=== PATIENT | male | born 1960 | race African-American/Black ===

== ENCOUNTER 2019-04-28 13:50 | Inpatient (IN) | payer MEDICAID ==
[~2019-04-28] VITALS: Ht 177.8 cm; Wt 78.9 kg
[2019-04-28] MEDS ORDERED: ACETAMINOPHEN 325MG TABLET PO STA (14:31)
[2019-04-28] MEDS ORDERED: SODIUM CHLORIDE 0.9% 1000ML BAG (SEPSIS BOLUS) IV ONE (14:45)
[2019-04-28] MEDS ORDERED: PIPERACILLIN/TAZ 3.375G PREMIX 50 ML IV ONE (14:45)
[2019-04-28 15:00] LABS: HEMATOCRIT. 41.4 % (42.0-52.0); MEAN CORPUSCULAR HEMOGLOBIN 28.2 pg (28.0-32.0); MEAN CORPUSCULAR VOLUME 83.6 fL (80.0-94.0); MEAN PLATELET VOLUME 7.9 fl (7.4-10.4); PLATELET 207 x1000/uL (130-400); RED BLOOD CELL COUNT 4.96 mill/uL (4.7-6.1)
[2019-04-28 15:05] LABS: PROTHROMBIN TIME 10.5 sec (9.6-11.0)
[2019-04-28 15:06] LABS: CHLORIDE 101 mEq/L (98-107)
[2019-04-28 15:10] LABS: ETHANOL BLOOD < 10 mg/dL
[2019-04-28 15:28] LABS: CLARITY URINE CLEAR (CLEAR); COLOR URINE DARK YELLOW (YELLOW); KETONES URINE NEGATIVE (NEGATIVE); LEUKOCYTE ESTERASE URINE 1+ (NEGATIVE); NITRITE URINE POSITIVE (NEGATIVE); OCCULT BLOOD URINE NEGATIVE (NEGATIVE); PROTEIN URINE 1+ (NEGATIVE); SPECIFIC GRAVITY URINE 1.027 (1.005-1.030)
[2019-04-28] MEDS ORDERED: VANCOMYCIN 1 G PREMIX 200 ML IV SCH (15:30)
[2019-04-28 15:39] LABS: PLATELET ESTIMATE NORMAL
[2019-04-28] MEDS ORDERED: AZITHROMYCIN 500 MG TABLET PO ONE (16:45)
[2019-04-28] MEDS ORDERED: DOCUSATE SODIUM 100MG CAPSULE PO PRN (21:15)
[2019-04-28] MEDS ORDERED: CLONIDINE 0.1MG TABLET PO PRN (21:15)
[2019-04-28] MEDS ORDERED: ONDANSETRON HCL 4MG/2ML INJ IV PRN (21:15)
[2019-04-28] MEDS ORDERED: MAGNESIUM/ALUMINUM HYDROXIDE/SIMETHICONE 30ML UDC PO PRN (21:15)
[2019-04-28] MEDS ORDERED: LEVOFLOXACIN 500MG PREMIX 100 ML IV SCH (21:15)
[2019-04-28] MEDS ORDERED: ACETAMINOPHEN 325MG TABLET PO PRN (21:15)
[2019-04-28 21:30] VITALS: BP_SYST 103; BP_DIAS 60; BP_DIAS 62
[2019-04-28] MEDS: HYDROCODONE/ACETAMINOPHEN 5/325MG TABLET PO PRN (21:52)
[2019-04-29] MEDS: LEVOFLOXACIN 500MG PREMIX 100 ML IV SCH ×2 (00:01→23:14)
[2019-04-29] MEDS: HYDROCODONE/ACETAMINOPHEN 5/325MG TABLET PO PRN ×2 (01:51→14:17)
[2019-04-29 03:20] VITALS: BP_SYST 109; BP_SYST 114; BP_DIAS 65; BP_DIAS 71
[2019-04-29 06:30] LABS: HEMATOCRIT. 38.5 % (42.0-52.0); MEAN CORPUSCULAR HEMOGLOBIN 27.9 pg (28.0-32.0); MEAN CORPUSCULAR VOLUME 82.8 fL (80.0-94.0); MEAN PLATELET VOLUME 8.2 fl (7.4-10.4); PLATELET 195 x1000/uL (130-400); RED BLOOD CELL COUNT 4.65 mill/uL (4.7-6.1)
[2019-04-29 06:44] LABS: CHLORIDE 106 mEq/L (98-107)
[2019-04-29 08:00] VITALS: BP 135/79
[2019-04-29 12:00] VITALS: BP 116/80
[2019-04-29 14:31] LABS: PLATELET ESTIMATE NORMAL
[2019-04-29 14:47] LABS: *COCAINE SCREEN URINE PRESUMTIVE POSITIVE (NEGATIVE)
[2019-04-29 14:48] LABS: *AMPHETAMINES SCREEN URINE PRESUMTIVE POSITIVE (NEGATIVE); *BARBITURATES SCREEN URINE NEGATIVE (NEGATIVE); *BENZODIAZEPINES SCREEN URINE NEGATIVE (NEGATIVE); CANNABINOID URINE SCREEN NEGATIVE (NEGATIVE); METHADONE URINE SCREEN NEGATIVE (NEGATIVE); OPIATES URINE SCREEN PRESUMTIVE POSITIVE (NEGATIVE); PHENCYCLIDINE URINE SCREEN NEGATIVE (NEGATIVE)
[2019-04-29 16:00] VITALS: BP 104/53
[2019-04-29 20:00] VITALS: BP 108/60
[2019-04-30] VITALS: BP 112/68
[2019-04-30 04:00] VITALS: BP 110/65
[2019-04-30 08:00] VITALS: BP 112/74
[2019-04-30] MEDS: HYDROCODONE/ACETAMINOPHEN 5/325MG TABLET PO PRN (08:50)
[2019-04-30 14:45] VITALS: BP 103/70
[2019-04-30 16:00] VITALS: BP 104/71
[2019-04-30 20:00] VITALS: BP 103/50
[2019-04-30] MEDS: CEFAZOLIN 1000MG PREMIX 50 ML IV SCH (20:04)
[2019-04-30] MEDS: LEVOFLOXACIN 500MG PREMIX 100 ML IV SCH (22:35)
[2019-05-01] VITALS: BP 122/71
[2019-05-01] MEDS: CEFAZOLIN 1000MG PREMIX 50 ML IV SCH ×3 (03:30→21:07)
[2019-05-01 04:00] VITALS: BP 99/57
[2019-05-01 05:37] LABS: BASOPHILS % 0.3 % (0.0-2.0); EOSINOPHILS % 1.7 % (0.0-5.0); HEMATOCRIT. 39.2 % (42.0-52.0); HEMOGLOBIN. 13.2 g/dL (14.0-18.0); LYMPHOCYTES % 10.1 % (20.0-50.0); MEAN CORPUSCULAR HEMOGLOBIN 27.9 pg (28.0-32.0); MEAN CORPUSCULAR VOLUME 82.7 fL (80.0-94.0); MEAN PLATELET VOLUME 8.2 fl (7.4-10.4); MONOCYTES % 7.6 % (2.0-8.0); NEUTROPHILS % 80.3 % (40.0-76.0); PLATELET 249 x1000/uL (130-400); RED BLOOD CELL COUNT 4.75 mill/uL (4.7-6.1); RED CELL DISTRIBUTION WIDTH 13.9 % (11.6-14.6)
[2019-05-01 05:55] LABS: CHLORIDE 106 mEq/L (98-107)
[2019-05-01 08:00] VITALS: BP 116/75
[2019-05-01 12:00] VITALS: BP 125/82
[2019-05-01] MEDS: LEVOFLOXACIN 500MG TABLET PO SCH (17:13)
[2019-05-01 20:00] VITALS: BP 112/75
[2019-05-02] VITALS: BP 115/72
[2019-05-02 04:00] VITALS: BP 109/72
[2019-05-02] MEDS: CEFAZOLIN 1000MG PREMIX 50 ML IV SCH ×3 (04:07→19:47)
[2019-05-02 08:00] VITALS: BP 113/69
[2019-05-02 12:00] VITALS: BP 109/73
[2019-05-02 16:00] VITALS: BP 100/64
[2019-05-02] MEDS: LEVOFLOXACIN 500MG TABLET PO SCH (18:04)
[2019-05-02 20:00] VITALS: BP 108/68
[2019-05-02] MEDS: HYDROCODONE/ACETAMINOPHEN 5/325MG TABLET PO PRN (21:04)
[2019-05-03] VITALS: BP 102/62
[2019-05-03] MEDS: CEFAZOLIN 1000MG PREMIX 50 ML IV SCH ×2 (03:44→11:17)
[2019-05-03 04:00] VITALS: BP 104/62
[2019-05-03 08:00] VITALS: BP 119/65
[2019-05-03] MEDS: HYDROCODONE/ACETAMINOPHEN 5/325MG TABLET PO PRN ×2 (11:18→20:37)
[2019-05-03 11:44] VITALS: BP 119/84
[2019-05-03 16:00] VITALS: BP 124/69
[2019-05-03] MEDS: LEVOFLOXACIN 500MG TABLET PO SCH (17:17)
[2019-05-03 20:00] VITALS: BP 104/62
[2019-05-04] VITALS: BP 106/60
[2019-05-04 04:00] VITALS: BP 92/86
[2019-05-04 08:00] VITALS: BP 108/74
[2019-05-04 12:00] VITALS: BP 107/68
[2019-05-04 14:01] VITALS: BP 107/68
== END 2019-05-04 15:15 | disposition home or self-care (01) | DRG 720 ==
LOC: ER 14:08 → 6EST 17:19 → EDBEDREQ 17:21 → EDBEDREQSVC 17:21 → EDBEDREQTM 17:21 → ENRESERV 20:00
PROVIDERS: ADMIT Hospitalist; ATTEND Hospitalist
DX: A41.9 Sepsis, unspecified organism (principal); F14.10 Cocaine abuse, uncomplicated; N39.0 Urinary tract infection, site not specified; B96.20 Unspecified Escherichia coli [E. coli] as the cause of diseases classified elsewhere; N43.3 Hydrocele, unspecified; F15.10 Other stimulant abuse, uncomplicated; N45.3 Epididymo-orchitis; Z59.0 Homelessness
CPT/HCPCS: 36415; 71045; 74177; 76870; 80053; 80305; 80320; 81003; 83605; 83880; 84145; 84484; 85025; 87077; 87186; 87804; 93005; 93976; 96365; 96367; 99291; J0690; J1956; J2543; J3370; J7030; G0480

== ENCOUNTER 2021-10-23 12:22 | Emergency (ER) | payer MEDICAID ==
[~2021-10-23] VITALS: Ht 175.3 cm; Wt 82.0 kg
[2021-10-23] MEDS ORDERED: LIDO700A30 TP (13:30)
[2021-10-23] MEDS ORDERED: FURO-152 MT (13:30)
[2021-10-23] MEDS ORDERED: LIDOCAINE 5% PATCH TOP SCH (13:30)
[2021-10-23] MEDS ORDERED: TOPUD MT (13:30)
[2021-10-23] MEDS ORDERED: FUROSEMIDE 20MG TABLET PO ONE (13:30)
[2021-10-23] MEDS ORDERED: KETOROLAC 60MG/2ML VIAL IM ONE (13:30)
[2021-10-23 13:47] VITALS: BP 125/86
== END 2021-10-23 13:51 | disposition home or self-care (01) ==
LOC: ER 12:43
DX: S16.1XXA Strain of muscle, fascia and tendon at neck level, initial encounter (principal); X58.XXXA Exposure to other specified factors, initial encounter; Y93.89 Activity, other specified; Y92.89 Other specified places as the place of occurrence of the external cause; Y99.8 Other external cause status; I11.0 Hypertensive heart disease with heart failure; I50.9 Heart failure, unspecified; Z76.0 Encounter for issue of repeat prescription
CPT/HCPCS: 96372; 99283; J1885